=== PATIENT | male | born 2005 | race Caucasian/White ===

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

== ENCOUNTER 2025-04-07 13:27 | Emergency (ER) | payer OTHER ==
[~2025-04-07] VITALS: Ht 162.5 cm; Wt 59.0 kg
[~2025-04-07 13:27] MED LIST: AMOXICILLIN500 M2 PO; CETIRIZINE10 MG PO
[2025-04-07 14:00] LABS: BASO # 0.1 10*3/uL (0.0-0.1); BASO % 0.5 % (0.0-1.0); EOS % 0.2 % (1.0-4.0); HEMATOCRIT 44.1 % (42.0-52.0); MEAN CELL VOLUME 91.9 fl (80.0-94.0); MEAN CORPUSCULAR HGB 30.2 pg (27.0-31.0); MEAN CORPUSCULAR HGB CONC 32.9 g/dl (33.0-37.0); MEAN PLATELET VOLUME 8.8 fl (9.6-12.3); MONO # 0.7 10*3/uL (0.1-1.0); MONO % 7.1 % (3.0-9.0); NEUT # 8.1 10*3/uL (2.3-7.9); NEUT % 77.5 % (47.0-73.0); PLATELET COUNT AUTOMATED 241 10*3/uL (130-400); RED CELL DISTRI WIDTH 12.1 % (0-14.5); WHITE BLOOD COUNT 10.5 10*3/uL (4.8-10.8)
[2025-04-07 14:24] LABS: BUN 11 mg/dl (9-23); CHLORIDE 103 mmol/L (98-107); POTASSIUM 3.5 mmol/L (3.4-5.1)
[2025-04-07 14:26] LABS: BILIRUBIN Negative (Negative); BLOOD Negative (Negative); CLARITY Clear (Clear); COLOR Yellow (Yellow); GLUCOSE Negative (Negative); KETONE Negative (Negative); LEUKO ESTERASE Negative (Negative); NITRITE Negative (Negative); PH 6.5 (4.5-8.0)
[2025-04-07 14:34] LABS: EPITHELIAL CELLS 0-2; WBC 0-2 wbc/hpf (0-5)
[2025-04-07 14:35] LABS: ETHYL ALCOHOL < 3.0 mg/dl (<3)
[2025-04-07 14:44] LABS: URINE AMPHETAMINES Negative (1000ng/ml); URINE BARBITURATES Negative (200ng/ml); URINE BENZODIAZEPINES Negative (200ng/ml); URINE CANNABINOIDS (THC) Negative (50ng/ml); URINE COCAINE Negative (300ng/ml); URINE METHADONE Negative (300ng/ml); URINE OPIATES Negative (300ng/ml); URINE PHENCYCLIDINE Negative (25ng/ml)
== END 2025-04-07 20:36 | disposition short-term general hospital (02) ==
LOC: ED 13:27
PROVIDERS: Emergency Medicine
DX: F43.21 Adjustment disorder with depressed mood (principal); Z79.899 Other long term (current) drug therapy

== ENCOUNTER 2025-04-16 11:35 | Emergency (ER) | payer OTHER ==
[2025-04-16] MEDS ORDERED: LORazepam 1 MG TAB PO ONE (11:45)
[2025-04-16 11:58] LABS: BASO % 0.4 % (0.0-1.0); EOS % 0.2 % (1.0-4.0); HEMATOCRIT 44.5 % (42.0-52.0); MEAN CELL VOLUME 88.3 fl (80.0-94.0); MEAN CORPUSCULAR HGB 30.2 pg (27.0-31.0); MEAN CORPUSCULAR HGB CONC 34.2 g/dl (33.0-37.0); MONO # 0.7 10*3/uL (0.1-1.0); MONO % 7.2 % (3.0-9.0); NEUT # 8.1 10*3/uL (2.3-7.9); NEUT % 78.3 % (47.0-73.0); PLATELET COUNT AUTOMATED 242 10*3/uL (130-400); RED BLOOD COUNT 5.04 10*6/uL (4.50-5.90); RED CELL DISTRI WIDTH 12.4 % (0-14.5); WHITE BLOOD COUNT 10.3 10*3/uL (4.8-10.8)
[2025-04-16 12:18] LABS: BUN 9 mg/dl (9-23); CHLORIDE 103 mmol/L (98-107); POTASSIUM 3.7 mmol/L (3.4-5.1)
== END 2025-04-16 12:37 | disposition home or self-care (01) ==
LOC: ED 11:35
PROVIDERS: Emergency Medicine
DX: F41.9 Anxiety disorder, unspecified (principal); R07.89 Other chest pain; F32.A Depression, unspecified; Z79.899 Other long term (current) drug therapy